=== PATIENT | male | born 1950 ===

== ENCOUNTER 2017-05-07 01:17 | Emergency (ER) | payer MEDICARE ==
[2017-05-07 01:37] VITALS: O2SAT 98
[2017-05-07] MEDS ORDERED: Lidocaine 1% Inj (20ml) INFIL ONE (01:44)
[2017-05-07] MEDS ORDERED: Lidocaine 1% Inj (20ml) ONE (01:55)
[2017-05-07 02:14] LABS: BASO % 0.4 % (0.0-2.0); EOS # 0.1 K/uL (0.0-0.7); EOS % 0.8 % (0.0-4.0); HEMOGLOBIN 15.4 g/dL (12.0-18.0); LYMPH # 1.6 K/uL (1.0-4.3); LYMPH % 21.1 % (20.0-40.0); MEAN CORPUSCULAR HEMOGLOBIN 30.8 pg (27.0-31.0); MEAN CORPUSCULAR HGB CONC 32.5 g/dL (33.0-37.0); MEAN PLATELET VOLUME 9.4 fl (7.2-11.7); MONO # 0.6 K/uL (0.0-0.8); MONO % 7.5 % (0.0-10.0); NEUT # 5.2 K/uL (1.8-7.0); NEUT % 70.2 % (50.0-75.0); NRBC % 0.1 % (0.0-0.0); RBC 4.99 Mil/uL (4.40-5.90); RED CELL DISTRIBUTION WIDTH 13.9 % (11.5-14.5); WHITE BLOOD COUNT 7.4 K/uL (4.8-10.8)
[2017-05-07] MEDS ORDERED: Povidone Iodine Topical 10% Sol ONE (02:18)
[2017-05-07 02:22] LABS: ALB/GLOB RATIO 1.3 (1.0-2.1); ALBUMIN 4.3 g/dL (3.5-5.0); ALT/SGPT 42 U/L (21-72); AST/SGOT 35 U/L (17-59); BLOOD UREA NITROGEN 15 mg/dl (9-20); CALCIUM 8.6 mg/dL (8.4-10.2); GFR AFRICAN-AMERICAN > 60; GFR NON-AFRICAN AMERICAN > 60
--- NOTE | 2017-05-07 02:25 | CT ---
EXAM: CT Head Without Intravenous Contrast CLINICAL HISTORY: 67 years old, male; Injury or trauma; Fall TECHNIQUE: Axial computed tomography images of the head/brain without intravenous contrast. All CT scans at this facility use one or more dose reduction techniques, viz.: automated exposure control; ma/kV adjustment per patient size (including targeted exams where dose is matched to indication; i.e. head); or iterative reconstruction technique. Coronal and sagittal reformatted images were created and reviewed. COMPARISON: No relevant prior studies available. FINDINGS: Brain: Mild atrophy. No intracranial hemorrhage. No mass. No edema. Ventricles: No hydrocephalus. Bones/joints: No acute fracture. Soft tissues: Unremarkable. Sinuses: Scattered mild mucosal thickening. Mastoid air cells: No mastoid effusion. Orbits: Unremarkable as visualized. IMPRESSION: 1. No intracranial hemorrhage. 2. Incidental/non-acute findings are described above.
--- NOTE | 2017-05-07 02:42 | ED PDOC ---
HPI: Psych/Substance Abuse Time Seen by Provider: 05/07/17 01:21 Chief Complaint (Nursing): Alcohol Ingestion History Per: EMS Additional Complaint(s): As per EMS pt. was found lying on the side of a street and noted to have blood on his face and on his L hand. Pt. admits to drinking 6 cups of wine today. Pt. is uncertain as to how he fell. Offers no complaints at this time. Denies headache, chest pain, palpitations. Past Medical History Reviewed: Historical Data, Nursing Documentation, Vital Signs Vital Signs: Last Vital Signs Temp 98.1 F 05/07/17 01:33 Pulse 77 05/07/17 01:33 Resp 18 05/07/17 01:33 BP 113/68 05/07/17 01:33 Pulse Ox 98 05/07/17 01:33 - Medical History PMH: CAD, HTN Denies: HIV - Surgical History Other surgeries: +pacemaker - Family History Family History: States: No Known Family Hx - Home Medications Home Medications: Ambulatory Orders Medication Instructions Recorded Aspirin [Aspirin EC] 81 mg PO DAILY #0 ect 09/07/14 Carvedilol [Coreg] 6.25 mg PO Q12 #0 tab 09/07/14 Furosemide [Lasix] 20 mg PO DAILY #0 udc 09/07/14 Ramipril [Altace] 2.5 mg PO DAILY #0 cap 09/07/14 Cephalexin [cephalexin] 500 mg PO Q6 #28 cap 05/07/17 - Allergies Allergies/Adverse Reactions: Allergies Allergy/AdvReac Type Severity Reaction Status Date / Time No Known Allergies Allergy Verified 05/07/17 01:33 Review of Systems ROS Statement: Except As Marked, All Systems Reviewed And Found Negative Physical Exam - Reviewed Nursing Documentation Reviewed: Yes Vital Signs Reviewed: Yes - Physical Exam Appears: Positive for: Well, Non-toxic, No Acute Distress Head Exam: Positive for: ATRAUMATIC, NORMOCEPHALIC. Negative for: NORMAL INSPECTION (dry blood noted to face but no open wounds) Skin: Positive for: Normal Color, Warm. Negative for: Rash Eye Exam: Positive for: EOMI, Normal appearance, PERRL ENT: Positive for: Normal ENT Inspection Neck: Positive for: Normal, Painless ROM Cardiovascular/Chest: Positive for: Regular Rate, Rhythm Respiratory: Positive for: CNT, Normal Breath Sounds Gastrointestinal/Abdominal: Positive for: Normal Exam, Bowel Sounds, Soft, Other (no ecchymosis). Negative for: Tenderness Back: Positive for: Normal Inspection. Negative for: Vertebral Tenderness ( including cervical spine) Extremity: Positive for: Normal ROM, Capillary Refill (< 2 seconds of L 3rd digit), Other (palmar surface of L 3rd digit with 1cm superficial jagged laceration on middle phalanx without tendon exposure; FROM actively of L 3rd digit; no active bleeding) Neurologic/Psych: Positive for: Alert, Oriented, Gait (unsteady). Negative for : Aphasia, Facial Droop - Laboratory Results Result Diagrams: 05/07/17 02:00 05/07/17 02:00 - ECG ECG: Positive for: Interpreted By Me ECG Rhythm: Positive for: Sinus Rhythm. Negative for: ST/T Changes Rate: 67 O2 Sat by Pulse Oximetry: 98 - Radiology X-Ray: Interpreted by Me (CXR) X-Ray Interpretation: No Acute Disease - Progress Re-evaluation Time: 05:27 (Gait steady unassisted. ) Condition: Re-examined, Improved Procedures - Time-Out Type of Procedure: laceration repair Site of Procedure: L 3rd digit Correct Patient (with visual ID + MR# on ID Band): Yes Correct Procedure: Yes Correct Site Marked: Yes PA/Tech: Jono MONTILLA - Laceration/Wound Repair Laceration repair Wound Length (cm): 1 Wound's Depth, Shape: superficial, irregular Wound Explored: clean Irrigated w/ Saline (ccs): 400 Betadine Prep?: Yes Anesthesia: 1% Lidocaine Volume Anesthetic (ccs): 4 Wound Repaired With: Sutures Suture Size/Type: 5:0, proline Number of Sutures: 5 Layer Closure?: No Wound Complexity: Simple Disposition - Clinical Impression Clinical Impression: Alcohol intoxication, Finger laceration - Patient ED Disposition Is Patient to be Admitted: No - Disposition Referrals: [facility] [Outside] Disposition: Routine/Home Disposition Time: 05:26 Condition: IMPROVED Additional Instructions: Suture removal in 7 days. Follow up with your PMD in 2 days for wound check. Prescriptions: Cephalexin [cephalexin] 500 mg PO Q6 #28 cap Instructions: Care For Your Stitches (ED), Alcohol Intoxication (ED) Forms: [employer] (Nicaraguan) Print Language: CENTRAL AFRICAN
[2017-05-07 05:56] VITALS: BP 122/78; PULSE 86; RESP 16; TEMP 98.3
--- NOTE | 2017-05-07 17:49 | CARD ---
APPROVED REPORT EKG Measurement Heart [id number] <Conclusion> Normal sinus rhythm Left axis deviation Left bundle branch block Abnormal ECG
== END 2017-05-07 05:55 | disposition home or self-care (01) ==
LOC: H.ER 01:17
DX: S61.219A Laceration without foreign body of unspecified finger without damage to nail, initial encounter (principal); W19.XXXA Unspecified fall, initial encounter; Y92.89 Other specified places as the place of occurrence of the external cause; F10.129 Alcohol abuse with intoxication, unspecified; I10 Essential (primary) hypertension; I25.10 Atherosclerotic heart disease of native coronary artery without angina pectoris; Z79.82 Long term (current) use of aspirin; Z95.0 Presence of cardiac pacemaker
CPT/HCPCS: 12001; 70450; 80053; 85025; 93005; 99285; G0480